=== PATIENT | male | born 1975 | race American Indian/Alaskan Native ===

== ENCOUNTER 2023-05-23 20:57 | Emergency (ER) | payer OTHER ==
[2023-05-23 22:11] LABS: BASOPHILS PERCENT AUTO 0.7 % (0.0-1.0); EOSINOPHILS PERCENT AUTO 0.5 % (1.0-3.0); HEMATOCRIT 40.7 % (40.0-54.0); HEMOGLOBIN 14.5 g/dL (14.0-18.0); LYMPHOCYTES PERCENT AUTO 15.5 % (20.5-50.1); MEAN CORPUSCULAR HEMOGLOBIN 33.3 pg (27.0-34.0); MEAN CORPUSCULAR HGB CONC 35.6 g/dL (33.0-35.0); MEAN CORPUSCULAR VOLUME 93.3 fL (80-100); NEUTROPHILS PERCENT AUTO 72.3 % (42.2-75.2); PLATELET COUNT,PLT 267 10^3/uL (150-450); RED BLOOD CELL COUNT 4.36 10^6/uL (4.6-6.2); WHITE BLOOD CELL COUNT,WBC 10.9 10^3/uL (5.0-10.0)
[2023-05-23] MEDS: Ketorolac 30 MG/ML SDV IVPUSH ONE (22:15)
[2023-05-23] MEDS: Sodium Chloride 0.9% 10 ML Syringe FLUSH PRN (22:15)
[2023-05-23 22:19] LABS: ALANINE AMINOTRANSFERASE,ALT 34 U/L (16-63); ALBUMIN 4.4 g/dL (3.4-5.0); ALKALINE PHOSPHATASE 84 U/L (46-116); ANION GAP 16.3 mEq/L (7-13); ASPARTATE AMNIOTRANSFERASE,AST 24 U/L (15-37); BILIRUBIN TOTAL 0.4 mg/dL (0.2-1.0); BLOOD UREA NITROGEN,BUN 11 mg/dL (7-18); BUN/CREATININE RATIO 10.9 (No establ ref range); CALCIUM 9.5 mg/dL (8.5-10.1); CARBON DIOXIDE,CO2 25 mmol/L (21-32); CHLORIDE,CL 99 mmol/L (98-107); CREATININE 1.01 mg/dL (0.70-1.30); EST CRCL DRUG DOSING (CG) 102.18 mL/min; GLUCOSE RANDOM 124 mg/dL (70-99); POTASSIUM,K 3.3 mmol/L (3.5-5.1); PROTEIN TOTAL,TP 8.6 g/dL (6.4-8.2); SODIUM,NA 137 mmol/L (136-145)
[2023-05-23 22:24] LABS: C-REACTIVE PROTEIN < 0.50 ng/dL (<=0.50); ESTIMATED GFR 92 mL/min (>=60)
[2023-05-23] MEDS: Iopamidol 755 Mg/ML 100 ML Bottle IVPUSH ONE (23:06)
[2023-05-24] MEDS: GI Cocktail Oral Solution 30 ML PO ONE (00:27)
[2023-05-24] MEDS: Pantoprazole 40 MG Vial IVPUSH ONE (00:33)
== END 2023-05-24 00:40 | disposition home or self-care (01) ==
LOC: DL.ED 20:57
DX: K21.00 Gastro-esophageal reflux disease with esophagitis, without bleeding (principal); K44.9 Diaphragmatic hernia without obstruction or gangrene; E78.00 Pure hypercholesterolemia, unspecified; I10 Essential (primary) hypertension; E11.9 Type 2 diabetes mellitus without complications; F17.210 Nicotine dependence, cigarettes, uncomplicated; Z88.2 Allergy status to sulfonamides; Z88.1 Allergy status to other antibiotic agents; Z79.82 Long term (current) use of aspirin; Z79.899 Other long term (current) drug therapy; Z79.84 Long term (current) use of oral hypoglycemic drugs
CPT/HCPCS: 36415; 71275; 80053; 84484; 85025; 85379; 86140; 93005; 93010; 96374; 96375; 99284; 99285-25; A9270-GY; C9113; J1885; J3490; Q9967

== ENCOUNTER 2023-08-06 07:27 | Day surgery (SDC) | payer OTHER ==
[~2023-08-06 07:27] MED LIST: Midazolam 1 MG/ML 2 ML SDV ONE; fentaNYL 100 MCG/2 ML SDV ONE
[2023-08-06] MEDS: Dextrose 5%-0.45% NaCl 1,000 ML IV SCH (07:40)
[2023-08-06] MEDS: fentaNYL 100 MCG/2 ML SDV IV ONE ×2 (08:04→08:05)
[2023-08-06] MEDS: Midazolam 1 MG/ML 2 ML SDV IV ONE ×2 (08:05→08:06)
== END 2023-08-06 09:45 | disposition home or self-care (01) ==
LOC: DL.ENDO 07:27
PROVIDERS: ATTEND Internal Medicine Gastroenterology
DX: K21.9 Gastro-esophageal reflux disease without esophagitis (principal); E11.9 Type 2 diabetes mellitus without complications; E78.00 Pure hypercholesterolemia, unspecified
CPT/HCPCS: 43239; 87077; J2250; J3010; J7042

== ENCOUNTER 2024-07-28 17:56 | Emergency (ER) | payer OTHER | END 2024-07-28 18:04 | disposition left against medical advice (07) | LOC: DL.ED 17:56 | DX: Z53.21 Procedure and treatment not carried out due to patient leaving prior to being seen by health care provider (principal) ==